=== PATIENT | female | born 1995 | race African-American/Black ===

== ENCOUNTER 2020-11-30 08:51 | Outpatient (RCR) | payer MEDICAID, OTHER, SELFPAY | END 2021-01-10 13:28 | disposition home or self-care (01) | LOC: HO.WCC 08:51 | PROVIDERS: Visit Provider Physician Assistant | DX: Z09 Encounter for follow-up examination after completed treatment for conditions other than malignant neoplasm (principal); M79.5 Residual foreign body in soft tissue | CPT/HCPCS: 99212; 99213 ==